=== PATIENT | male | born 1985 | race Caucasian/White ===

== ENCOUNTER 2024-12-26 06:26 | Day surgery (SDC) | payer BC ==
[2024-12-24 15:58] VITALS: BMI 26.6
[2024-12-26 07:42] VITALS: RESP 18
[2024-12-26] MEDS ORDERED: ONDANSETRON 4 MG/2 ML VIAL ONE (08:45)
[2024-12-26] MEDS ORDERED: KETOROLAC TROMETHAMINE 30 MG/1 ML VIAL ONE (08:45)
[2024-12-26] MEDS ORDERED: DEXAMETHASONE SOD PHOSPHATE 4 MG/1 ML VIAL ONE (08:45)
[2024-12-26] MEDS ORDERED: ceFAZolin SODIUM 1 GM VIAL ONE (08:45)
[2024-12-26] MEDS ORDERED: MIDAZOLAM HCL 2 MG/2 ML SINGLE DOSE VIAL ONE ×2 (08:46→09:31)
[2024-12-26] MEDS ORDERED: SODIUM CHLORIDE 0.9% P/F 10 ML VIAL IJ ONE (08:47)
[2024-12-26] MEDS: ceFAZolin SODIUM 1 GM VIAL IVPB ONE (09:23)
[2024-12-26 11:42] VITALS: BP 110/70; PULSE 68; TEMP 97.4
== END 2024-12-26 12:34 | disposition home or self-care (01) ==
LOC: JASU-SURG 06:26
PROVIDERS: ATTEND Urology
PROC: 0TF6XZZ Fragmentation in Right Ureter, External Approach (ICD-10-PCS; principal; 2024-12-26 09:15)
DX: N20.1 Calculus of ureter (principal)